=== PATIENT | male | born 1995 | race Caucasian/White ===

== ENCOUNTER 2019-01-11 07:23 | Emergency (ER) | payer OTHER ==
[2019-01-11] MEDS ORDERED: HALOPERIDOL LACT 5 MG/ML INJ IVP ONE (07:37)
[2019-01-11] MEDS ORDERED: NS 1,000 ML IV ONE (07:37)
--- NOTE | 2019-01-11 07:41 | EDPHY ---
H & P Time Seen by Provider: 01/11/19 07:27 HPI/ROS: Chief Complaint: Nausea, vomiting, abdominal pain HPI: 23-year-old male woke this morning with a upper abdominal pain nausea and has vomited multiple times. Patient states this happened to him every morning for the last week or so. 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 Patient states that he has been a regular user of daily cannabis for the least the last 2 years. Does have a history of GERD but this feels different. No blood or coffee-grounds in his emesis. No dark tarry stools. No fevers or chills. No chest pain or shortness of breath. Patient states that the main thing that makes him feel better is driving around in his car. Symptoms improved after a couple of hours. ROS: 10 systems were reviewed and were negative except those elements noted in the HPI. PMH: GERD Social History: No smoking, no alcohol, daily regular cannabis use Family History: non-contributory Physical Exam: Gen: Awake, Alert, No Distress HEENT: Nose: no rhinorrhea Eyes: PERRLA, EOMI Mouth: Moist mucosa Neck: Supple, no JVD Chest: nontender, lungs clear to auscultation Heart: S1, S2 normal, no murmur Abd: Soft, non-tender, no guarding Back: no CVA tenderness, no midline tenderness Ext: no edema, non-tender Skin: no rash Neuro: CN II-XII intact, Sensation grossly intact, Strength 5/5 in bilateral upper and lower extremities Constitutional: Initial Vital Signs Temperature (C) 37.1 C 01/11/19 07:27 Heart Rate 65 01/11/19 07:27 Respiratory Rate 18 01/11/19 07:27 Blood Pressure 152/109 H 01/11/19 07:27 O2 Sat (%) 99 01/11/19 07:27 O2 Delivery Mode Room Air Allergies/Adverse Reactions: No Known Allergies Allergy (Unverified 01/11/19 07:41) Home Medications: Medication Instructions Recorded Omeprazole 01/11/19 Ondansetron Odt [Zofran Odt 4 mg 4 mg PO Q4 PRN #10 tab 01/11/19 (*)] Sertraline HCl 01/11/19 Medical Decision Making ED Course/Re-evaluation: Patient is improved after IV antiemetics and IV fluids. He is tolerating p.o.. We discussed the likely cause of his symptoms as being cannabinoid hyperemesis. Will discharge with outpatient follow-up, advised to abstain from cannabis use. - Data Points Medications Given: Discontinued Medications Diphenhydramine HCl (Benadryl Injection) 25 mg IVP EDNOW ONE Stop: 01/11/19 08:09 Last Admin: 01/11/19 08:10 Dose: 25 mg Haloperidol Lactate (Haldol Injection) 2.5 mg IVP EDNOW ONE Stop: 01/11/19 07:38 Last Admin: 01/11/19 07:44 Dose: 2.5 mg Sodium Chloride (Ns) 1,000 mls @ 0 mls/hr IV ONCE ONE; Wide Open PRN Reason: Protocol Stop: 01/11/19 07:38 Last Admin: 01/11/19 07:45 Dose: 1,000 mls Metoclopramide HCl (Reglan Injection) 10 mg IVP EDNOW ONE Stop: 01/11/19 08:24 Last Admin: 01/11/19 08:25 Dose: 10 mg Departure - Departure Disposition: Home, Routine, Self-Care Clinical Impression: Cannabinoid hyperemesis syndrome Condition: Good Instructions: Cannabis Abuse (ED) Additional Instructions: I believe your regular use of cannabis is causing her symptoms. In order for your symptoms to improve I recommend you abstain from all cannabis use for at least the next 6-8 weeks. Follow up with primary care physician in 3-4 days for further evaluation. Referrals: Andrés Bond DO [Doctor of Osteopathy] - As per Instructions Prescriptions: Ondansetron Odt [Zofran Odt 4 mg (*)] 4 mg PO Q4 PRN #10 tab PRN Reason: nausea
[2019-01-11] MEDS ORDERED: METOCLOPRAMIDE 10 MG/2 ML VIAL ONE (08:22)
[2019-01-11] MEDS ORDERED: METOCLOPRAMIDE 10 MG/2 ML VIAL IVP ONE (08:23)
[2019-01-11 10:11] VITALS: BP 141/94
== END 2019-01-11 09:45 | disposition home or self-care (01) ==
LOC: CED 07:23
DX: T40.7X1A Poisoning by cannabis (derivatives), accidental (unintentional), initial encounter (principal); R11.2 Nausea with vomiting, unspecified; R10.9 Unspecified abdominal pain; E86.9 Volume depletion, unspecified
CPT/HCPCS: 96361-ER; 96374-ER; 96375-ER; 99284-ER; J1200; J1630; J2765